=== PATIENT | male | born 1960 | race Caucasian/White ===

== ENCOUNTER 2016-07-26 16:24 | Emergency (ER) | payer BC ==
[2016-07-26 16:37] VITALS: BP 175/88
[2016-07-26] MEDS ORDERED: Ondansetron ODT TAB* 4 MG PO ONE (16:45)
[2016-07-26] MEDS ORDERED: Ketorolac INJ* 60 MG/2 ML VIAL IM ONE (16:46)
--- NOTE | 2016-07-26 16:53 | UC ---
Complaint Male HPI - HPI Summary HPI Summary: Left flank pain began today with radiation in to groin and testicles similar to past kidney stones but today he has been unable to void. no fevers or chills positive nausea - History of Current Complaint Chief Complaint: UCGU Stated Complaint: FLANK,GROIN PAIN Time Seen by Provider: 07/26/16 16:41 Hx Obtained From: Patient Onset/Duration: Sudden Onset, Lasting Hours, Still Present Timing: Constant Severity Initially: Severe Severity Currently: Severe Pain Intensity: 9 Pain Scale Used: 0-10 Numeric Location: Flank - left Character: Sharp, Colicy Aggravating Factor(s): Nothing Alleviating Factor(s): Nothing Associated Signs And Symptoms: Positive: Dysuria, Nausea - Allergies/Home Medications Allergies/Adverse Reactions: Allergies Allergy/AdvReac Type Severity Reaction Status Date / Time Codeine Allergy Nausea And Verified 07/26/16 16:37 Vomiting PMH/Surg Hx/FS Hx/Imm Hx Previously Healthy: No Endocrine History Of: Denies: Diabetes, Thyroid Disease Cardiovascular History Of: Denies: Cardiac Disorders, Hypertension Respiratory History Of: Denies: COPD, Asthma GI/ History Of: Reports: Kidney Stones Denies: Ulcer - Surgical History Surgical History: Yes Surgery Procedure, Year, and Place: vasectomy - Family History Known Family History: Positive: None Family History: no cardio vascular issues reported in family lineage - Social History Occupation: Employed Full-time Lives: With Family Alcohol Use: None Substance Use Type: None Smoking Status (MU): Never Smoked Tobacco Review of Systems Constitutional: Negative Skin: Negative Eyes: Negative ENT: Negative Respiratory: Negative Cardiovascular: Negative Gastrointestinal: Negative Genitourinary: Dysuria, Other - left flank pain Motor: Negative Neurovascular: Negative Musculoskeletal: Negative Neurological: Negative Psychological: Negative All Other Systems Reviewed And Are Negative: Yes Physical Exam Triage Information Reviewed: Yes Appearance: Well-Appearing, No Pain Distress, Well-Nourished Vital Signs: Initial Vital Signs Temp 98.4 F 07/26/16 16:34 Pulse 74 07/26/16 16:34 Resp 18 07/26/16 16:34 BP 175/88 07/26/16 16:34 Pulse Ox 99 07/26/16 16:34 Vital Signs Reviewed: Yes Eye Exam: Normal Eyes: Positive: Conjunctiva Clear ENT Exam: Normal ENT: Positive: Normal ENT inspection, Hearing grossly normal, Pharynx normal, TMs normal. Negative: Nasal congestion, Nasal drainage, Trismus, Muffled/ hoarse voice Dental Exam: Normal Neck exam: Normal Neck: Positive: Supple, Nontender, No Lymphadenopathy Respiratory Exam: Normal Respiratory: Positive: Chest non-tender, Lungs clear, Normal breath sounds, No respiratory distress, No accessory muscle use Cardiovascular Exam: Normal Cardiovascular: Positive: RRR, No Murmur, Pulses Normal, Brisk Capillary Refill Abdominal Exam: Normal Abdomen Description: Positive: No Organomegaly, Soft, CVA Tenderness (L). Negative: Distended, Hepatomegaly, McBurney's Point Tenderness Bowel Sounds: Positive: Present Musculoskeletal Exam: Normal Musculoskeletal: Positive: Strength Intact, ROM Intact, No Edema Neurological Exam: Normal Neurological: Positive: Alert, Muscle Tone Normal, Fatigued Psychological Exam: Normal Skin Exam: Normal Complaint Male Course/Dx - Course Course Of Treatment: npo, zofran toradol, transfer to hospital - Differential Dx/Diagnosis Differential Diagnosis/HQI/PQRI: Ureteral Calculi, Urinary Tract Infection Provider Diagnoses: Left renal colic - Physician Notifications Discussed Patient Care With: Dr. Godlberg Time Discussed With Above Provider: 16:50 Instructed by Provider To: Transfer Discharge - Discharge Plan Condition: Guarded Disposition: AGAINST MEDICAL ADVICE
== END 2016-07-26 17:10 | disposition left against medical advice (07) ==
LOC: UCEAST 16:24
DX: N23 Unspecified renal colic (principal); Z87.442 Personal history of urinary calculi; Z88.5 Allergy status to narcotic agent
CPT/HCPCS: 96372; 99212; A9270-GY; G0463; J1885

== ENCOUNTER 2016-07-26 17:32 | Emergency (ER) | payer BC ==
[2016-07-26] MEDS ORDERED: NS 0.9% 1000 ML* 1,000 ML IV ONE (18:46)
[2016-07-26] MEDS ORDERED: Ondansetron INJ* 2 MG/ML VIAL IV ONE (18:46)
[2016-07-26] MEDS ORDERED: Morphine INJ* 4 MG/ML 1 ML SYRINGE IV ONE ×2 (18:46→19:59)
[2016-07-26 19:13] LABS: Hematocrit 46 % (42-52); Hemoglobin 15.6 g/dl (14.0-18.0); Mean Corpuscular HGB Conc 34 g/dl (31-36); Mean Corpuscular Hemoglobin 29 pg (27-31); Mean Corpuscular Volume 85 fL (80-94); Mean Platelet Volume 8 um3 (7.4-10.4); Red Blood Count 5.37 10^6/ul (4.0-5.4); Red Cell Distribution Width 14 % (10.5-15); White Blood Count 14.5 10^3/ul (3.5-10.8)
[2016-07-26 19:26] LABS: Albumin 4.8 g/dL (3.2-5.2); BUN/Creatinine Ratio 8.4 (8-20); Calcium 9.8 mg/dL (8.6-10.3); EGFR African American 60.6 (>60); EGFR Non-African American 47.1 (>60); Potassium 4.6 mmol/L (3.5-5.0); Total Bilirubin 0.9 mg/dL (0.2-1.0); Total Protein 7.8 g/dL (6.4-8.9)
--- NOTE | 2016-07-26 19:48 | RAD ---
CLINICAL HISTORY: Left flank pain in a patient with a history of kidney stones. Relevant surgical history includes mastectomy. COMPARISON: Similar examination dated June 23, 2011 TECHNIQUE: Noncontrast CT examination of the abdomen and pelvis from the lung bases through the initial tuberosities. FINDINGS: VISUALIZED LUNG BASES: The visualized lung bases are grossly clear. There is no pleural effusion. ABDOMEN AND PELVIS: Evaluation of the solid organs and vasculature is limited without intravenous contrast. The liver exhibits homogenous hypoattenuation. In the left lobe of the liver there are 2 poorly defined, but stable fluid density cysts. The homogenously attenuating spleen is top normal measuring 12 cm in greatest axial dimension. The pancreas and adrenal glands are grossly normal in appearance. The gallbladder is normal. There are at least 2 new renal calculi in the right kidney measuring 2 and 4 mm respectively. There is no right-sided hydronephrosis. At the left ureteropelvic junction there is a 4 mm calcification. There is a moderate degree of left-sided hydroureteronephrosis with a moderate degree of perinephric stranding. Evaluation of the gastrointestinal tract is limited without oral contrast. The small and large bowel are not distended.The patient's normal appendix is identified in the right lower quadrant with gas in the lumen (axial image 147). Scattered distal colonic diverticula are noted but none exhibit acute inflammatory change.. There is no gross retroperitoneal or mesenteric lymphadenopathy. The pelvic viscera is normal in appearance. The abdominal aorta and iliac arteries are normal in course and diameter. Degenerative changes include multilevel loss of intervertebral disc height involving the lower thoracic and lumbar spine.There are no sinister bone lesions. IMPRESSION: 1. At the left ureteropelvic junction there is a 4 mm calcification with ipsilateral moderate hydronephrosis and moderate left perinephric stranding. 2. At least 2 new nonobstructing renal calculi are identified in the right kidney when compared to the [address] findings are consistent with hepatic steatosis or other chronic infiltrative disease of the liver.
[2016-07-26 20:26] LABS: Urine Bacteria Absent (Absent); Urine Bilirubin Negative (Negative); Urine Glucose Negative (Negative); Urine Nitrite Negative (Negative)
[2016-07-26] MEDS ORDERED: Sulfamethox/Trimethoprim DS 800/160* TAB PO ONE (20:28)
[2016-07-26] MEDS ORDERED: oxyCODONE/Acetamin 5/325 MG* TAB PO ONE (20:34)
[2016-07-26 21:03] VITALS: BP 139/78
== END 2016-07-26 21:02 | disposition home or self-care (01) ==
LOC: ED 17:32
DX: N13.30 Unspecified hydronephrosis (principal); N28.9 Disorder of kidney and ureter, unspecified; N20.1 Calculus of ureter; R10.9 Unspecified abdominal pain; R11.10 Vomiting, unspecified
CPT/HCPCS: 36415; 74176; 80053; 81003; 81015; 83605; 83690; 85025; 87086; 90471; 96374; 96375; 99283; A9270-GY; J2270; J2405